=== PATIENT | female | born 1940 | race Two or more races ===

== ENCOUNTER 2023-08-04 16:43 | Emergency (ER) | payer OTHER, BC ==
[~2023-08-04] VITALS: Ht 162.6 cm; Wt 44.5 kg
[2023-08-04 16:54] VITALS: BP_SYST 129; PULSE 75; RESP 18; TEMP 97.8; O2SAT 98
[2023-08-04 17:41] LABS: BASOPHILS % (AUTO) 0.3 % (0.0-2.0); EOSINOPHILS # (AUTO) 0.1 K/uL (0.0-0.4); EOSINOPHILS % (AUTO) 1.2 % (0.0-4.0); HEMATOCRIT 37.5 % (36-48); HEMOGLOBIN 12.9 g/dL (12.0-16.0); LYMPHOCYTES # (AUTO) 0.8 K/uL (1.0-5.5); LYMPHOCYTES % (AUTO) 7.9 % (20.5-51.5); MEAN CORPUSCULAR HEMOGLOBIN 31 pg (27-31); MEAN CORPUSCULAR HGB CONC 35 % (32-36); MEAN CORPUSCULAR VOLUME 88 fL (79.0-98.0); MONOCYTES # (AUTO) 0.5 K/uL (0.0-1.0); MONOCYTES % (AUTO) 4.9 % (1.7-9.3); NEUTROPHILS # (AUTO) 8.9 K/uL (1.8-7.7); NEUTROPHILS % (AUTO) 85.7 % (40.0-70.0); PLATELET COUNT (AUTO) 170 K/uL (130-430); RED BLOOD CELL COUNT(AUTO) 4.24 MIL/uL (4.2-6.2); RED CELL DISTRIBUTION WIDTH 13.4 % (9.0-15.0); WHITE BLOOD COUNT (AUTO) 10.4 K/uL (4.8-10.8)
[2023-08-04 17:57] LABS: PROTHROMBIN TIME 10.4 SECS (9.5-12.5)
[2023-08-04 18:14] LABS: ALANINE AMINOTRANSFERASE 18 U/L (12-78); ANION GAP 9 (5-15); ASPARTATE AMINOTRANSFERASE 24 U/L (10-37); CALCIUM 8.9 mg/dL (8.4-11.0); CARBON DIOXIDE 27 mmol/L (23-29); CHLORIDE 102 mmol/L (98-107); CREATININE 1.11 mg/dL (0.55-1.30); GLUCOSE 103 mg/dL (74-106); POTASSIUM 4.1 mmol/L (3.5-5.1); SODIUM SERUM 138 mmol/L (136-145); TOTAL BILIRUBIN 0.6 mg/dL (0.0-1.0); TOTAL PROTEIN, SERUM 8.5 g/dL (6.4-8.3); UREA NITROGEN, BLOOD 30 mg/dL (8-21)
[2023-08-04 18:21] LABS: AMYLASE 49 U/L (0-100); BILIRUBIN,DIRECT 0.2 mg/dL (0.0-0.3); LACTATE DEHYDROGENASE 193 U/L (81-234); LIPASE 70 U/L (16-77)
[2023-08-04] MEDS ORDERED: MAGN296S8 PO (19:02)
[2023-08-04] MEDS ORDERED: NA P133E41 RC (19:02)
[2023-08-04 19:05] LABS: BILIRUBIN,URINE NEGATIVE (NEGATIVE); BLOOD, URINE NEGATIVE (NEGATIVE); COLOR,URINE YELLOW (YELLOW); GLUCOSE,URINE NEGATIVE (NEGATIVE); KETONES,URINE TRACE (NEGATIVE); LEUKOCYTE ESTERASE ,URINE NEGATIVE (NEGATIVE); NITRITE, URINE NEGATIVE (NEGATIVE); PH,URINE 5.5 (5.0-8.0); PROTEIN URINE TRACE (NEGATIVE); UROBILINOGEN,URINE 0.2 (0.2-1.0)
[2023-08-04 19:18] LABS: CLARITY/URINE SLIGHTLY HAZY (CLEAR)
[2023-08-04 19:20] LABS: BACTERIA,URINE FEW /HPF (None Seen); RBC,URINE 0-3 /HPF (0-3); URINE AMORPHOUS URATE 1+ /HPF (None Seen); WBC,URINE 0-3 /HPF (0-3)
[2023-08-04 19:21] LABS: MUCUS,URINE 1+ /LPF (None Seen)
== END 2023-08-04 19:09 | disposition home or self-care (01) ==
LOC: SED 16:43
DX: R10.31 Right lower quadrant pain (principal); R11.0 Nausea; Z88.6 Allergy status to analgesic agent; Z79.899 Other long term (current) drug therapy
CPT/HCPCS: 36415; 80048; 80076; 81000; 81001; 81015; 82150; 83605; 83615; 83690; 84484; 85025; 85610; 85730; 99284